=== PATIENT | male | born 1965 | race Caucasian/White ===

== ENCOUNTER 2024-10-24 20:46 | Emergency (ER) | payer OTHER ==
[~2024-10-24] VITALS: Ht 188 cm; Wt 110.0 kg
[2024-10-24] MEDS ORDERED: ALBUTEROL/IPRATROPIUM 3 ML NEB INH ONE (21:30)
[2024-10-24 21:34] LABS: PH, VENOUS 7.382 (7.31-7.41)
[2024-10-24 21:35] LABS: BASOPHILS 0.3 % (0.2-1.2); HEMATOCRIT 45.4 % (40.1-51.0); LYMPHOCYTES 35.3 % (21.8-53.1); MCH 32.3 PG (25.7-32.2); MCHC 35.2 g/dL (32.3-36.5); MCV 91.7 fL (79.0-92.2); MONOCYTES 7.8 % (5.3-12.2); NEUTROPHILS 46.3 % (34.0-67.9); PLATELET COUNT 188 K/uL (163-337); RBC 4.95 M/uL (4.63-6.08)
[2024-10-24 21:58] LABS: ALBUMIN 3.9 g/dL (3.4-5.0); ALBUMIN/GLOBULIN RATIO 1.05 (1.1-2.4); ANION GAP 9.8 (7-21); BILIRUBIN, TOTAL 0.5 mg/dL (0.2-1.0); BUN/CREATININE RATIO 11.9 (6.0-28.6); CALCIUM 9.6 mg/dL (8.5-10.1); CREATININE, SERUM 1.26 mg/dL (0.70-1.30); POTASSIUM 3.8 mmol/L (3.5-5.1); PROTEIN, TOTAL 7.6 g/dL (6.4-8.2)
[2024-10-24 22:00] LABS: CORONAVIRUS COVID-19 AG NEGATIVE (NEGATIVE)
[2024-10-24] MEDS ORDERED: KETOROLAC TROMETHAMINE 30 MG/ML VIAL IV ONE (22:15)
[2024-10-25] MEDS ORDERED: methylPREDNISolone 4 MG HOME.PACK PO ONE (01:00)
[2024-10-25] MEDS ORDERED: GUAIFENESIN/CODEINE 60 ML HOME.PACK PO ONE (01:00)
[2024-10-25] MEDS ORDERED: ALBUTEROL SULFATE 8 GM HOME.PACK INH ONE (01:00)
[2024-10-25 01:12] VITALS: BP 161/91
== END 2024-10-25 01:14 | disposition home or self-care (01) ==
LOC: ED 20:46
PROVIDERS: Family Medicine
DX: J40 Bronchitis, not specified as acute or chronic (principal); Z88.0 Allergy status to penicillin
CPT/HCPCS: 36415; 71260; 80053; 82803; 83880; 85025; 85379; 94640; 99285-25; J1885; Q9967